=== PATIENT | male | born 1930 | race Caucasian/White ===

== ENCOUNTER → 2016-08-08 | Outpatient (CLI) | payer MEDICARE, OTHER ==
[~2016-08-08] MED LIST: CELEXA40 MG PO; COUMADIN5 MG PO; CRESTOR10 MG PO; DILTIAZEM ER120 MG PO; DIOVAN160 MG PO; GLUCOPHAGE500 MG PO; KLOR-CON 1010 MEQ PO; MAXZIDE 37.5 M1 EACH PO; PRILOSEC OTC20 MG PO; SYNTHROID100 MCG PO; VALIUM 5 MG TAB5 MG PO; VITAMIN B-121000 MC3 PO; VITAMIN D 11000 UNIT PO
== END ==
LOC: RAD 16:53
DX: M79.672 Pain in left foot (principal); R93.7 Abnormal findings on diagnostic imaging of other parts of musculoskeletal system
CPT/HCPCS: 73630